=== PATIENT | female | born 1995 | race Caucasian/White ===

== ENCOUNTER 2018-06-14 09:02 | Emergency (ER) | payer OTHER, SELFPAY ==
[2018-06-14 10:03] VITALS: BP 130/82; PULSE 100; RESP 13; TEMP 36.9; O2SAT 98
--- NOTE | 2018-06-14 10:18 | ED.NAVMDI ---
HPI - Nausea/Vomiting/Diarrhea General Chief complaint: Nausea/Vomiting/Diarrhea Stated complaint: Diarrhea, dihydrated, vomiting Time Seen by Provider: 06/14/18 10:04 Source: patient Mode of arrival: ambulatory Limitations: no limitations History of Present Illness HPI Narrative: Otherwise healthy 22-year-old female here for evaluation of vomiting that occurred over 2 days 3 days ago. Now with continued diarrhea. She states she does not remember the last time that she urinated without having a bowel movement along with it. States she also is on her menstrual cycle. Has not been camping, drinking upon water, no recent antibiotics, no recent sick contacts. Has not tried any anti diarrheal medications except for Pepto-Bismol. Related Data Home Medications Medication Instructions Recorded Confirmed etonogestrel [Nexplanon] 1 ea SUBDERMAL .ONCE 06/14/18 06/14/18 Previous Rx's Medication Instructions Recorded loperamide [Imodium A-D] 2 mg PO Q2-4H PRN #10 cap 06/14/18 Allergies Allergy/AdvReac Type Severity Reaction Status Date / Time No Known Drug Allergies Allergy Verified 04/22/18 15:20 Review of Systems Constitutional Denies fever(s) Cardiovascular Denies chest pain and Denies dyspnea Respiratory Denies dyspnea Gastrointestinal Gastrointestinal: Denies abdominal pain, Reports cramping, Reports diarrhea, Denies nausea and Denies vomiting Genitourinary Denies dysuria and Reports vaginal discharge Integumentary/Breasts Denies rash Neurologic Denies behavioral changes Psychiatric Denies behavioral changes Hematologic/Lymphatic Denies easy bleeding and Denies easy bruising [facility] Surgical History History of excision of mass (Resolved 07/24/14) Family History (Updated 12/08/17 @ 11:25 by Marilyn Hedrick) Father No problems noted. Grandfather Cancer Grandmother No problems noted. Mother No problems noted. Grandfather No problems noted. Grandmother Alzheimer's disease Sister No problems noted. Brother No problems noted. Social History Smoking Status: Former smoker Tobacco: How many years used: 1 (social smoker only. I never bought a pack for myself. ) second hand exposure: No alcohol intake: current (beer or wine maybe twice a week. ) substance use type: does not use Family History (Updated 12/08/17 @ 11:25 by Marilyn Hedrick) Father No problems noted. Grandfather Cancer Grandmother No problems noted. Mother No problems noted. Grandfather No problems noted. Grandmother Alzheimer's disease Sister No problems noted. Brother No problems noted. Social History Smoking Status: Former smoker Tobacco: How many years used: 1 (social smoker only. I never bought a pack for myself. ) second hand exposure: No alcohol intake: current (beer or wine maybe twice a week. ) substance use type: does not use Exam Initial Vital Signs Initial Vital Signs: Vital Signs Temperature 98.4 F 06/14/18 10:03 Pulse Rate 100 H 06/14/18 10:03 Respiratory Rate 13 06/14/18 10:03 Blood Pressure 130/82 06/14/18 10:03 Pulse Oximetry 98 06/14/18 10:03 Const General: cooperative, comfortable, well developed, well groomed and No acute distress Orientation: alert and awake HENMT Head: normal to inspection and normocephalic Resp Effort & Inspection: normal respiratory effort Cardio Rate: tachycardic GI Inspection: non-distended Palpation: soft, No firm and No tender Skin Lesions: no lesions Rashes: no rashes Neuro General: alert, awake and oriented x3 Extrem General: normal to inspection and capillary refill normal Psych Appearance: grossly normal and well kempt Course Orders Ordered: ED Orders 06/14/18 10:35 GI Panel (Film Array) Stat Discontinued Medications Sodium Chloride (Normal Saline 0.9%) 1,000 mls @ 1,000 mls/hr IV BOLUS ONE Stop: 06/14/18 11:17 Last Infusion: 06/14/18 11:32 Dose: 0 mls/hr Admin: 06/14/18 10:23 Dose: 1,000 mls/hr Ibuprofen (Advil) 400 mg PO NOW ONE Stop: 06/14/18 11:32 Last Admin: 06/14/18 11:33 Dose: 400 mg Vital Signs - 8 hr 06/14/18 10:03 Temperature 98.4 F Pulse Rate 100 H Respiratory Rate 13 Blood Pressure 130/82 Pulse Oximetry 98 MDM - Nausea/Vomiting/Diarrhea Lab Data Attestation: I reviewed the patient's lab results. Lab Results 06/14/18 Range/Units 10:35 Stl C. cayetanensis PCR Not detected (Not Detect) Stool Rotavirus (PCR) Not detected (Not Detect) Stool Adenovirus (PCR) Not detected (Not Detect) Stool Astrovirus (PCR) Not detected (Not Detect) Stool Cryptosporidium PCR Not detected (Not Detect) Stl E.coli Shiga Tox PCR Not detected (Not Detect) St Sh/Enteroin Ecoli PCR Not detected (Not Detect) Stool E coli O157 PCR Not detected (Not Detect) Stl Enterotoxigenic E PCR Not detected (Not Detect) Stool EPEC (PCR) Not detected (Not Detect) Stl E. histolytica PCR Not detected (Not Detect) Stool Giardia Lamblia PCR Not detected (Not Detect) Stool Sapovirus (PCR) Not detected (Not Detect) Stl P. shigelloides PCR Not detected (Not Detect) St Y.enterocolitica PCR Not detected (Not Detect) Stool Vibrio (PCR) Not detected (Not Detect) Stl Vibrio cholerae PCR Not detected (Not Detect) Stl Enteroaggr Ecoli PCR Not detected (Not Detect) Stl Norovirus GI/GII PCR Detected H (Not Detect) Campylobacter (PCR) Not detected (Not Detect) C. difficile Tox (PCR) Not detected (Not Detect) Salmonella (PCR) Not detected (Not Detect) Point of Care Testing Test Results Negative Urine Dip Bedside Urine Glucose Negative Bedside Urine Bilirubin - Negative Bedside Urine Ketone - Negative Urine Specific Switchback 1.025 Bedside Urine Occult Blood + Bedside Urine pH 6.0 Bedside Urine Protein +/- 15 Bedside Urine Urobilinogen - Negative Bedside Urine Nitrite - Negative Bedside Urine Leukocytes - Negative Esterase MDM Narrative Medical decision making narrative: The patient is tolerating oral intake. Her stool cultures does show norovirus. I discussed this with the patient. No indication for further workup. Patient was given return precautions and follow-up instructions Discharge Plan Departure Patient Disposition: Home Clinical Impression: Norovirus Instructions: Diarrhea, DI for Norovirus Infection Activity Restrictions/Additional Instructions: Be sure to increase your fluid intake. Be sure you are washing her hands frequently. Contact her primary care doctor for a follow-up Prescriptions: New loperamide [Imodium A-D] 2 mg capsule 2 mg PO Q2-4H PRN (Reason: loose stool) Qty: 10 RF: 0 No Action Nexplanon 68 mg Implant 1 ea Subdermal .ONCE RF: 0 Referrals: Vicki Ramirez PA-C [Primary Care Provider] -
[2018-06-14] MEDS: SODIUM CHLORIDE 0.9% 1,000 ML 1000 ML IV (10:23)
[2018-06-14] MEDS: IBUPROFEN 400 MG TABLET PO (11:33)
[2018-06-14 12:08] LABS: Adenovirus F 40/41 Not Detected (Not Detect); Astrovirus Not Detected (Not Detect); Campylobacter Not Detected (Not Detect); Clostridium difficile toxin AB Not Detected (Not Detect); Cryptosporidium Not Detected (Not Detect); Cyclospora cayetanensis Not Detected (Not Detect); Entamoeba histolytica Not Detected (Not Detect); Enteroaggregative E.coli Not Detected (Not Detect); Enteropathogenic E.coli Not Detected (Not Detect); Enterotoxigenic E.coli It/st Not Detected (Not Detect); Giardia lamblia Not Detected (Not Detect); Norovirus GI/GII Detected (Not Detect); Plesiomonsa shigelloides Not Detected (Not Detect); Rotavirus A Not Detected (Not Detect); Salmonella Not Detected (Not Detect); Sapovirus Not Detected (Not Detect); Shiga-like toxin-prod E.coli Not Detected (Not Detect); Shigella/Enteroinvasive E.coli Not Detected (Not Detect); Vibrio Not Detected (Not Detect); Vibrio cholerae Not Detected (Not Detect); Yersinia enterocolitica Not Detected (Not Detect)
[2018-06-14 12:26] VITALS: BP 122/84; PULSE 90; RESP 16; O2SAT 100
== END 2018-06-14 12:30 | disposition home or self-care (01) ==
PROVIDERS: Emergency Provider Emergency Medicine; PCP Physician Assistant
DX: A08.11 Acute gastroenteropathy due to Norwalk agent (principal); E86.0 Dehydration; R11.10 Vomiting, unspecified
CPT/HCPCS: 81003; 81025; 87507; 99283

== ENCOUNTER → 2023-03-24 13:55 | Outpatient (CLI) | payer OTHER, SELFPAY ==
--- NOTE | 2023-03-24 13:56 | DI.US.S_ITS ---
PROCEDURE: US OB <= 14 WEEKS FETUS INDICATIONS: dating and viability OUTSIDE/PRIOR DATING DATA: Last menstrual period (LMP): 01/24/2023. LMP-based estimated date of delivery (GABRIEL): 10/31/2023. First dating scan (date and location): 03/24/2023. Estimated date of delivery (GABRIEL) from first dating scan: 10/31/2023. TECHNIQUE: Real-time scanning was performed of the fetus and maternal pelvic organs, with image documentation. Endovaginal scanning was also performed to better visualize the fetus and maternal ovaries. COMPARISON: None. FINDINGS: Embryo: [place]-rump length 1.9 cm corresponds with a 8 week 3 day gestation Heart rate: 169 beats per minute Maternal organs: Ovaries unremarkable. IMPRESSION: Single live intrauterine corresponds with a 8 week 3 day gestation Approved by: Bill Kahn M.D. on 03/24/2023 at 19:08
== END ==
LOC: US 13:56
PROVIDERS: PCP Family Medicine; Referring Provider Student in an Organized Health Care Education/Training Program; Visit Provider Student in an Organized Health Care Education/Training Program
DX: Z34.01 Encounter for supervision of normal first pregnancy, first trimester (principal); Z3A.08 8 weeks gestation of pregnancy
CPT/HCPCS: 76801

== ENCOUNTER → 2023-04-21 16:37 | Outpatient (CLI) | payer OTHER, SELFPAY ==
[2023-04-21 18:09] LABS: Add Manual Diff / Slide Review NO; Basophils Absolute Auto 100 /uL (0-100); Basophils Percent Auto 0.4 % (0-2); Eosinophils Absolute Auto 100 /uL (0-450); Eosinophils Percent Auto 0.7 % (2-4); Hemoglobin 12.8 g/dL (12.0-16.0); Lymphocytes Absolute Auto 3100 /uL (1100-4500); Lymphocytes Percent Auto 19.6 % (25-40); Mean Corpuscular HGB Conc 34.6 % (30-36); Mean Corpuscular Hemoglobin 30.2 PG (26-34); Mean Corpuscular Volume 87.4 fL (80-100); Monocytes Absolute Auto 1400 /uL (0-900); Monocytes Percent Auto 8.5 % (3-14); Neutrophils Absolute Auto 11400 /uL (1500-7000); Neutrophils Percent Auto 70.8 % (50-75); Platelet Count 243 X10^3/uL (150-400); Red Blood Cell Count 4.24 X10^6/uL (4.0-5.2); Red Cell Distribution Width 12.8 % (11.6-14.8)
[2023-04-21 18:10] LABS: Appearance Urine UA CLEAR; Bilirubin Urine UA NEGATIVE (NEGATIVE); Color Urine UA YELLOW; Glucose Urine UA NEGATIVE (Negative); Ketones Urine UA NEGATIVE (NEGATIVE); Leukocyte Esterase Urine UA NEGATIVE (NEGATIVE); Nitrite Urine UA NEGATIVE (Negative); Occult Blood Urine UA TRACE-INTACT (Negative); Protein Urine UA NEGATIVE (Negative); Specific Gravity Urine UA 1.025 (1.000-1.035); Urobilinogen Urine UA 0.2 E.U./dL (0.2); pH Urine UA 5.5 (4.5-8.0)
[2023-04-21 18:15] LABS: Creatinine Urine Random 91.5 mg/dL; Protein (Total) Urine Random 5 mg/dL (0-12); Protein Creatinine Ratio Urine 0.05 GRAM/24H
[2023-04-21 19:28] LABS: Urine N gonorrhoeae NOT DETECTED
[2023-04-21 19:29] LABS: Alanine Aminotransferase 36 IU/L (<35); Albumin Globulin Ratio 1.3 (1.0-2.8); Alkaline Phosphatase 64 U/L (38-126); Aspartate Aminotransferase 32 IU/L (14-36); BUN Creatinine Ratio 19.6 (6-22); Bilirubin Total 0.4 mg/dL (0.2-1.3); Blood Urea Nitrogen 10 mg/dL (7-17); Calcium 9.5 mg/dL (8.4-10.2); Carbon Dioxide 18 mmol/L (22-32); Chloride 106 mmol/L (98-107); Estimated Glomerular Filt Rate > 60 mL/min (>60); GTT (PREG) 1 Hour PP 50gm Dose 96 mg/dL (76-139); Globulin 3.2 g/dL (1.7-4.1); Glucose 96 mg/dL (70-100); HEMOLYSIS < 15 (0-50); Potassium 3.4 mmol/L (3.4-5.1); Sodium 134 mmol/L (137-145); Total Protein 7.2 g/dL (6.3-8.2)
[2023-04-21 19:38] LABS: Urine Chlamydia NOT DETECTED
[2023-04-23 12:09] LABS: Varicella IgG Antibody >4000 index (Immune >165)
[2023-04-23 19:03] LABS: Hepatitis B Surface Antigen NEGATIVE s/c (NEGATIVE)
[2023-04-23 19:58] LABS: HIV 1 & 2 Ab/Ag 4th Gen Combo NEGATIVE (NEGATIVE); Hep C Virus Ab w/Reflex Quant NEGATIVE s/c (NEGATIVE)
[2023-04-24 03:36] LABS: RPR Screen Non Reactive (Non Reactive)
== END ==
PROVIDERS: PCP Family Medicine; Referring Provider Family Medicine; Visit Provider Family Medicine
DX: Z34.01 Encounter for supervision of normal first pregnancy, first trimester (principal)
CPT/HCPCS: 80053; 80055; 81003; 82570; 82950; 84156; 86787; 86803; 86850; 86900; 86901; 87086; 87389; 87491; 87591

== ENCOUNTER → 2023-06-11 14:20 | Outpatient (CLI) | payer OTHER, SELFPAY ==
--- NOTE | 2023-06-11 14:21 | DI.US.S_ITS ---
PROCEDURE: US OB >= 14 WEEKS FETUS INDICATIONS: growth OUTSIDE/PRIOR DATING DATA: Last menstrual period (LMP): 01/24/2023. LMP-based estimated date of delivery (GABRIEL): 10/31/2023. First dating scan (date and location): 03/24/2023. Estimated date of delivery (GABRIEL) from first dating scan: 10/31/2023. The calculations are made using the clinical GABRIEL of 10/31/2023. TECHNIQUE: Real-time scanning was performed of the fetus, with image documentation and biometric measurements. Endovaginal scanning: No COMPARISON: None. FINDINGS: General: A single living intrauterine gestation is present. Presentation: Breech. Placenta: Placental position is posterior , without previa. Amniotic fluid index: 17.9 cm, normal range is 5-24 cm. Single deepest vertical pocket is 5.1 cm. heart rate: 153 beats per minute. Maternal cervical canal: 3.7 cm long. Normal lower limit is 2.5 cm. biometrics: Biparietal diameter: 4.8 cm, 20 week 3 day Head circumference: 17.7 cm, 20 week 1 day Abdominal circumference: 15.3 cm, 20 week 4 day Femur length: 3.0 cm, 19 week 2 day Clinically estimated gestational age: 19 week 5 day Composite gestational age from present scan: 20 week 1 day Estimated weight and percentile: 325 g, 62 percentile Anatomic survey: Neuro: Ventricles are non-dilated at less than 10 mm. Cisterna magna is normal at 3-11 mm. Cerebellum is normal in size and morphology. Nuchal skin fold: Not well seen Face: Nose and lips, facial profile are normal. Spine: No evidence for spina bifida. Heart: 4 chamber view nor outflow tracks are well observed Diaphragm: Diaphragm is intact. Stomach: Left-sided stomach is present. Kidneys: No hydronephrosis. Normal is less than 5 mm in 2nd trimester, less than 7 mm in 3rd trimester. Cord: 3-vessel cord has orthotopic insertion. Bladder: Normal in size. Extremities: All 4 extremities identified. IMPRESSION: neck and cardiac views are not well seen due to positioning. Attention on follow-up. Approved by: Bill Kahn M.D. on 06/11/2023 at 18:56
== END ==
PROVIDERS: PCP Family Medicine; Referring Provider Family Medicine; Visit Provider Family Medicine
DX: O32.1XX0 Maternal care for breech presentation, not applicable or unspecified; Z3A.20 20 weeks gestation of pregnancy
CPT/HCPCS: 76811

== ENCOUNTER → 2023-07-09 12:41 | Outpatient (CLI) | payer OTHER, SELFPAY ==
--- NOTE | 2023-07-09 12:42 | DI.US.S_ITS ---
PROCEDURE: US OB LIMITED INDICATIONS: repeat Anatomy US for heart and neck views OUTSIDE/PRIOR DATING DATA: Last menstrual period (LMP): 01/24/2023. LMP-based estimated date of delivery (GABRIEL): 10/31/2023. First dating scan (date and location): 03/24/2023. Estimated date of delivery (GABRIEL) from first dating scan: 10/31/2023. TECHNIQUE: Real-time scanning was performed of the fetus, with image documentation and biometric measurements. Endovaginal scanning: Not performed COMPARISON: [facility], US, US OB >= 14 WEEKS FETUS, 06/11/2023, 14:32. FINDINGS: General: A single living intrauterine gestation is present. Presentation: Vertex. Placenta: Placental position is posterior , without previa. Amniotic fluid index: 17.1 cm, normal range is 5-24 cm. Single deepest vertical pocket is 6.9 cm. heart rate: 160 beats per minute. Maternal cervical canal: 4.3 cm long. Normal lower limit is 2.5 cm. Clinically estimated gestational age: 23 weeks, 5 days Other: Four-chamber heart appears grossly within normal limits but is suboptimally seen. The ventricular outflow tracts are not well seen. The neck is within normal limits with nuchal fold measuring 5.2 millimeters.. IMPRESSION: 1. Single live intrauterine consistent with 23 weeks and 5 days. 2. Four chamber heart appears grossly within normal limits but is suboptimally seen. The ventricular outflow tracts are not well seen. Consider short-term follow-up. neck is within normal limits. We strive to produce accurate, complete, and clear reports of imaging services. To assist us in improving patient care, this report was composed using standard report templates and voice recognition software. Therefore, it may contain abnormal punctuation, insertions and/or omissions. Occasional wrong-word or sound-alike substitutions may occur. Though we review the report and make efforts to correct it, we do recommend that the report be read carefully in proper context to recognize any text inaccuracies. Dictated by: Adonis Stevenson M.D. on 07/09/2023 at 16:04 Approved by: Adonis Stevenson M.D. on 07/09/2023 at 16:09
== END ==
PROVIDERS: PCP Family Medicine; Referring Provider Family Medicine; Visit Provider Family Medicine
DX: Z34.02 Encounter for supervision of normal first pregnancy, second trimester (principal); Z3A.23 23 weeks gestation of pregnancy
CPT/HCPCS: 76815

== ENCOUNTER → 2023-07-21 07:01 | Outpatient (CLI) | payer OTHER, SELFPAY ==
--- NOTE | 2023-07-21 07:03 | DI.US.S_ITS ---
PROCEDURE: US OB FOLLOW UP INDICATIONS: CARDIAC OUTFLOW TRACTS OUTSIDE/PRIOR DATING DATA: Last menstrual period (LMP): 01/24/2023. LMP-based estimated date of delivery (GABRIEL): 10/31/2023. The calculations are made using the clinical GABRIEL of 10/31/2023. TECHNIQUE: Real-time scanning was performed of the fetus, with image documentation. Endovaginal scanning: Not performed COMPARISON: None. FINDINGS: A single living intrauterine gestation is present. Presentation: Oblique. Placenta: Placental position is posterior, without previa. Amniotic fluid index: 17.9 cm, normal range is 5-24 cm. Single deepest vertical pocket is 6.0 cm. heart rate: 150 beats per minute. Maternal cervical canal: 3.7 cm long. Normal lower limit is 2.5 cm. Clinically estimated gestational age: 25 weeks 3 days New cardiac outflow tracts appear within normal limits. IMPRESSION: Single living intrauterine at 25 weeks 3 days, GABRIEL of 10/31/2023. Cardiac outflow tracts appeared within normal limits. Dictated by: Jasbir Barriga M.D. on 07/21/2023 at 9:10 Approved by: Jasbir Barriga M.D. on 07/21/2023 at 9:11
[2023-07-21 10:16] LABS: Hematocrit 35.8 % (36-46); Hemoglobin 12.4 g/dL (12.0-16.0); Mean Corpuscular HGB Conc 34.5 % (30-36); Mean Corpuscular Hemoglobin 29.9 PG (26-34); Mean Corpuscular Volume 86.5 fL (80-100); Platelet Count 231 X10^3/uL (150-400); Red Blood Cell Count 4.14 X10^6/uL (4.0-5.2); Red Cell Distribution Width 12.6 % (11.6-14.8); White Blood Cell Count 14.6 X10^3/uL (4.5-11.0)
[2023-07-21 10:35] LABS: GTT (PREG) 1 Hour PP 50gm Dose 122 mg/dL (76-139)
== END ==
PROVIDERS: PCP Family Medicine; Referring Provider Family Medicine; Visit Provider Family Medicine
DX: Z34.02 Encounter for supervision of normal first pregnancy, second trimester (principal); Z3A.25 25 weeks gestation of pregnancy
CPT/HCPCS: 36415; 76816; 82950; 85027

== ENCOUNTER → 2023-08-25 07:18 | Outpatient (CLI) | payer OTHER, SELFPAY ==
--- NOTE | 2023-08-25 07:19 | DI.US.S_ITS ---
PROCEDURE: US OB LIMITED INDICATIONS: EFW OUTSIDE/PRIOR DATING DATA: Last menstrual period (LMP): 01/24/2023. LMP-based estimated date of delivery (GABRIEL): 10/31/2023. First dating scan (date and location): 03/24/2023. Estimated date of delivery (GABRIEL) from first dating scan: 10/31/2023. The calculations are made using the GABRIEL of 10/31/2023. TECHNIQUE: Real-time scanning was performed of the fetus, with image documentation and biometric measurements. Endovaginal scanning: Not performed COMPARISON: [facility], OB FOLLOW UP, 07/21/2023, 7:26. [facility], OB LIMITED, 07/09/2023, 13:17. FINDINGS: General: A single living intrauterine gestation is present. Presentation: Vertex. Placenta: Placental position is posterior , without previa. Amniotic fluid index: 23.4 cm, normal range is 5-24 cm. Single deepest vertical pocket is 7.6 cm. heart rate: 135 beats per minute. Maternal cervical canal: 4.1 cm long. Normal lower limit is 2.5 cm. biometrics: Biparietal diameter: 7.9 centimeters, 31 weeks 4 days Head circumference: 28.9 centimeters, 31 weeks 3 days Abdominal circumference: 27.9 centimeters, 32 weeks 0 days Femur length: 5.8 centimeters, 30 weeks 3 days Clinically estimated gestational age: 30 weeks 3 days Composite gestational age from present scan: 31 weeks 3 days Estimated weight and percentile: 1766 grams, 73 percent Other: Not applicable. IMPRESSION: 1. Single live intrauterine consistent with 31 weeks and 3 days. 2. Estimated weight is in the 73rd percentile. 3. Amniotic fluid index is at the upper limits of normal, 23.4 centimeters. We strive to produce accurate, complete, and clear reports of imaging services. To assist us in improving patient care, this report was composed using standard report templates and voice recognition software. Therefore, it may contain abnormal punctuation, insertions and/or omissions. Occasional wrong-word or sound-alike substitutions may occur. Though we review the report and make efforts to correct it, we do recommend that the report be read carefully in proper context to recognize any text inaccuracies. Dictated by: Adonis Stevenson M.D. on 08/25/2023 at 10:45 Approved by: Adonis Stevenson M.D. on 08/25/2023 at 10:50
== END ==
PROVIDERS: PCP Family Medicine; Referring Provider Family Medicine; Visit Provider Family Medicine
DX: Z34.03 Encounter for supervision of normal first pregnancy, third trimester (principal); Z3A.31 31 weeks gestation of pregnancy
CPT/HCPCS: 76815

== ENCOUNTER → 2023-10-02 14:36 | Outpatient (CLI) | payer OTHER, SELFPAY ==
[2023-10-03 14:44] LABS: Strep Grp B PCR NEG for Grp B Strep
== END ==
PROVIDERS: PCP Family Medicine; Visit Provider Family Medicine
DX: Z34.00 Encounter for supervision of normal first pregnancy, unspecified trimester (principal)
CPT/HCPCS: 87653

== ENCOUNTER 2023-11-08 19:19 | Inpatient (IN) | payer OTHER, SELFPAY ==
[2023-11-08] MEDS: miSOPROStoL 25 MCG TABLET PO (20:40)
[2023-11-08 22:15] LABS: Add Manual Diff / Slide Review NO; Basophils Absolute Auto 100 /uL (0-100); Basophils Percent Auto 0.4 % (0-2); Eosinophils Absolute Auto 100 /uL (0-450); Eosinophils Percent Auto 0.7 % (2-4); Hematocrit 42.2 % (36-46); Hemoglobin 14.1 g/dL (12.0-16.0); Lymphocytes Absolute Auto 3900 /uL (1100-4500); Lymphocytes Percent Auto 22.7 % (25-40); Mean Corpuscular HGB Conc 33.5 % (30-36); Mean Corpuscular Hemoglobin 28.3 PG (26-34); Mean Corpuscular Volume 84.6 fL (80-100); Monocytes Absolute Auto 1000 /uL (0-900); Monocytes Percent Auto 5.6 % (3-14); Neutrophils Absolute Auto 12200 /uL (1500-7000); Neutrophils Percent Auto 70.6 % (50-75); Platelet Count 299 X10^3/uL (150-400); Red Blood Cell Count 4.99 X10^6/uL (4.0-5.2); Red Cell Distribution Width 14.3 % (11.6-14.8); White Blood Cell Count 17.4 X10^3/uL (4.5-11.0)
[2023-11-09] MEDS: miSOPROStoL 25 MCG TABLET 50 MCG PO ×2 (00:40→04:45)
--- NOTE | 2023-11-09 08:13 | PM.OBHP.1 ---
OB HPI Date/Time Date of admission: 11/08/23 Date Patient Seen: 11/09/23 Time Patient Seen: 07:45 History of Present Condition Chief complaint: Induction : 1 Para: 0 Estimated Date of Delivery: 10/31/23 Estimated Gestational Age (weeks): 41w2d Narrative: Mable Crystal is a 28 year old G1 presenting at 41w1 day (last night) by LMP c/w dating US at 8w3d for mIOL for post-dates . has been uncomplicated other than measuring large for dates but US reassuring wtih EFW 1766g (73rd%ile) at 31w3d She was not feeling contractions on arrival but this morning is getting more uncomfortable after 3 doses of cytotec overnight. FHT reassuring. Indications Indication for induction OB: post dates History of Present care: good care Dating criteria: LMP confirmed by 1st trimester US (LMp c/w dating US at 8w3d) Ultrasounds: normal 1st trimester US and normal mid trimester US Obstetrical complications: none Medical complications: none Preadmission Labs Blood type: O (+) positive -: Antibody screen: negative, GBS status: negative, HBsAG: negative, HIV: negative and RPR/VDLR: negative -: Chlamydia screen: not detected and Gonorrhea screen: not detected -: Rubella: immune and Varicella: immune HCT: 42.2 HCAB: negative Cell-free DNA: low risk female 1 hr GTT: 122 Evaluation Evaluation Baseline heart rate: 140 Variability: Moderate (11-25) monitor accelerations: Present Monitor Decelerations: Absent Contraction Frequency (minutes): 3 Uterine Contraction Intensity: Mild Category of Tracing: Reactive Status: Category l Dilation (cm): 1 Effacement (%): 50 Dilation: 1-2 cm Effacement: 40-50% station: -3 Position of cervix: mid Consistency: soft Fitzpatrick score: 5 PFSH Medical History (Updated 05/19/23 @ 19:47 by Corinne Hinds) Eczema (~2000) Chicken pox (~2000) Migraine with aura (~2009) Skin irritation Surgical History (Updated 05/19/23 @ 19:47 by Corinne Hinds) Anesthesia [place] teeth extracted History of tonsillectomy and adenoidectomy (~2010) History of excision of mass (07/24/14) Family History (Updated 05/19/23 @ 19:49 by Corinne Hinds) Father Obesity Mental health problem Grandfather Cancer Heart disease Heart attack Hypertension Grandmother Obesity Breast cancer Mental health problem Hypertension Mother Eczema Grandfather Heart attack Heart disease Hypertension Grandmother Alzheimer's disease Breast cancer Brother Migraine with aura Mental health problem Brother Mental health problem Social History marital status: unmarried,living together number of children: 0 household members: significant other lives independently: Yes caregiver/support person: No housing: other (5th wheel trailer home) pets and animals: Yes (dog) education level: high school 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[employer]) current occupational exposures/hazards: No special leah needs: No travel history: over 6 months ago seatbelt use: always helmet use: Yes water heater temp set < 120 deg: Yes working smoke detector in home: Yes fire extinguisher in home: Yes carbon monox detector in home: Yes firearms in home: Yes firearms unloaded and locked: Yes do you feel safe at home: Yes Smoking Status: Never smoker Tobacco: How many years used: 4 (smoked, then vaped) second hand exposure: No alcohol intake: former (~3 glasses wine/week when not ) substance use type: does not use during the past year weight has: decreased > 10 lbs (~15 lb through diet and exercise) well-balanced diet: daily or most days daily servings fruits/ve or more times/day caffeine: No Type(s) of exercise: walking, resistance training and other (boxing) Meds Home Medications and Allergies Home Medications Medication Instructions Recorded Confirmed Type vitamin-ferrous sulfate tab PO 03/04/23 11/04/23 History 27 mg iron-folic acid 0.8 mg tablet famotidine 20 mg tablet (Heartburn 20 mg PO DAILY 11/08/23 11/08/23 History Relief (famotidine)) Allergies Allergy/AdvReac Type Severity Reaction Status Date / Time No Known Drug Allergies Allergy Verified 11/04/23 14:06 Review of Systems Review of Systems Narrative: starting to feel contractions this AM doing well No vaginal bleeding OB Exam Vital signs Blood Pressure: 119/70 Pulse Rate: 96 Temperature: 36.4 F Narrative Exam Narrative: GEN: well appearing, NAD pulm: breathing comfortably on RA CV: warm and well perfused ABd: gravid, non-tender SVE: 2/50/-3/soft, during exam wtih dawkins placement, stretches to a 3cm Objective Labs 11/08/23 21:55 Labs: Laboratory Results - last 24 hr 11/08/23 21:55 WBC 17.4 H RBC 4.99 Hgb 14.1 Hct 42.2 MCV 84.6 MCH 28.3 MCHC 33.5 RDW 14.3 Plt Count 299 Neut % (Auto) 70.6 Lymph % (Auto) 22.7 L Weber % (Auto) 5.6 Eos % (Auto) 0.7 L Baso % (Auto) 0.4 Neut # (Auto) 68312 H Lymph # (Auto) 3900 Weber # (Auto) 1000 H Eos # (Auto) 100 Baso # (Auto) 100 Blood Type O Positive Antibody Screen Negative Assessment and Plan Assessment and Plan Assessment and Plan narrative: 28 yo G1 presenting at 41w1d for mIOL due to post-dates . Overnight she was started on Cytotec. Dawkins balloon placed at 7:55am, tolerated well. SVE 2/60/-3 upon placement, when placing dawkins cervix stretches to 3cm. has been uncomplicated other than measuring large for dates but US reassuring [facility] EFW 1766g (73rd%ile) at 31w3d #mIOL for postdates : - s/p Cytotec 25, 50, 50mcg, last given this AM - Start Pitocin after she eats breakfast and showers - continuous monitoring - FHT cat 1 currently - GBS negative - Baby is low risk female, baby girl Alba - Partner Tucker at bedside - Cephalic on bedside US in clinic prior to arrival - EFW 1766g at 31w3d Time-Based Coding :: [TOTAL MINUTES] spent with patient and on the chart (including review of chart, obtaining history, exam, reviewing outside data, placing orders, documenting exam and treatment plan, and counseling patient) on [DATE].
[2023-11-09] MEDS: LACTATED RINGERS 1,000 ML 100 ML IV ×2 (08:40→15:21)
--- NOTE | 2023-11-09 09:17 | PM.OBPNLAB ---
Date/Time Date Patient Seen: 11/09/23 Time Patient Seen: 09:17 Pain Control Pain control: tolerating well Comments: Feeling contractions now, more uncomfortable but still tolerating well Pelvic Exam Dilation (cm): 5 Effacement (%): 80 station: -2 Amniotic membrane status: Intact Comments: AROM, clear fluid at 9:06. FHT following reassuring wtih baseline 135, +accels, - decels, moderate variability contractions not tracing well on TOCO Contractions Contractions on admission: irregular Monitor mode: External Contraction frequency (min): 3 Contraction duration (min): 1 Contraction pattern: Irregular Contraction intensity: Mild Status status: Category l Heart Rate Baseline: 140 Monitor Accelerations: Present Monitor Decelerations: Absent Monitor Variability: Moderate Assessment and Plan Assessment: induction ongoing Plan: begin patient augmentation Comments: 28 yo G1 presenting at 41w1d for mIOL due to post-dates . Overnight she was started on Cytotec and this AM dawkins balloon was placed. Balloon has now fallen out and pt is noting more discomfort. AROM, clear fluid at 9:06. Will start Pitocin for augmentation now that cervix is favorable. #mIOL for postdates : - s/p Cytotec 25, 50, 50mcg, last given this AM - s/p Dawkins baloon placement at 7:50am, fell out approximately 30 min later - s/p AROM at 9:06am - Start pitocin, 2mu/min, increase as tolerated - continuous monitoring - FHT cat 1 currently - GBS negative - Baby is low risk female, baby girl Alba - Partner Tucker at bedside - Cephalic on bedside US in clinic prior to arrival
[2023-11-09] MEDS: OXYTOCIN PREMIX 30 UNIT/500 ML PLAST..BAG IV (09:38)
[2023-11-09 11:06] VITALS: BP 119/70; PULSE 96; TEMP 2.4; TEMP 36.4
--- NOTE | 2023-11-09 11:21 | PM.AN.REGBLK ---
Regional Block Pre-procedure PMH/ROS narrative: labor ASA Class: II Labs: Hct 42.2 % (36-46) 11/08/23 21:55 Plt Count 299 X10^3/uL (150-400) 11/08/23 21:55 Medications: Current Medications Generic Name Dose Route Start Last Admin Trade Name Freq PRN Reason Stop Dose Admin Calcium Carbonate 1,000 mg 11/08/23 20:04 Calcium Carbonate 500 Mg Tab PO Q2HR PRN Dyspepsia Carboprost Tromethamine 250 mcg 11/08/23 20:04 Carboprost 250 Mcg/Ml Ampul IM Q90M PRN Bleeding Diphenhydramine HCl 25 mg 11/09/23 11:19 Diphenhydramine 50 Mg/Ml Vial IV Q10M PRN Pruritis Ephedrine Sulfate 10 mg 11/09/23 11:19 Ephedrine 50 Mg/Ml Vial IV Q5M PRN Blood pressure decrease more than 20% of baseline. Fentanyl 50 mcg 11/08/23 20:04 Fentanyl 100 Mcg/2 Ml Inj IV Q1H PRN Pain, Moderate (4-6) Hydromorphone HCl 0 mg 11/09/23 11:19 Hydromorphone 1 Mg Inj IV Q5MIN PRN Pain, Mild (1-3) Hydromorphone HCl 0 mg 11/09/23 11:19 Hydromorphone 1 Mg Inj IV Q5MIN PRN Pain, Moderate (4-6) Oxytocin/Lactated Ringer's 30 unit in 500 mls @ 200 mls/hr 11/08/23 20:04 Oxytocin Premix IV CONT PRN Bleeding Protocol Tranexamic Acid 1,000 mg/ 100 mls @ 600 mls/hr 11/08/23 20:04 Sodium Chloride IV NOW PRN Bleeding Oxytocin/Lactated Ringer's 30 unit in 500 mls @ 2 mls/hr 11/09/23 09:30 11/09/23 09:38 Oxytocin Premix IV 2 milliunit/min TITRATE MITZY 2 mls/hr Administration Protocol 2 MILLIUNIT/MIN Lidocaine HCl 20 ml 11/08/23 20:04 Lidocaine 1% 20 Ml INJ INTRA-OP PRN Post Delivery Methylergonovine Maleate 0.2 mg 11/08/23 20:04 Methylergonovine 0.2 Mg Tablet PO Q6HR PRN Heavy Bleeding Methylergonovine Maleate 0.2 mg 11/08/23 20:04 Methylergonovine 0.2 Mg/Ml Vial IM NOW PRN Bleeding Mineral Oil 30 ml 11/08/23 20:04 Mineral Oil 30 Ml Udc TOP PRN PRN Version Misoprostol 25 mcg 11/08/23 20:02 11/08/23 20:40 Misoprostol 25 Mcg Tablet PO 25 mcg QID MITZY Administration Misoprostol 800 mcg 11/08/23 20:04 Misoprostol 200 Mcg Tablet IL NOW PRN Bleeding Misoprostol 400 mcg 11/08/23 20:04 Misoprostol 200 Mcg Tablet SL NOW PRN Bleeding Misoprostol 50 mcg 11/09/23 00:30 11/09/23 04:45 Misoprostol 25 Mcg Tablet PO 50 mcg QID MITZY Administration Nalbuphine HCl 2.5 mg 11/09/23 11:19 Nalbuphine 20 Mg/Ml Ampul IV Q10M PRN Pruritis Naloxone HCl 0.2 mg 11/08/23 20:04 Naloxone 0.4 Mg/Ml Vial IV Q2MIN PRN Opiate Reversal Ondansetron HCl 4 mg 11/08/23 20:04 Ondansetron 4 Mg/2 Ml Inj IV Q4HR PRN Nausea And Vomiting Oxytocin 10 unit 11/08/23 20:04 Oxytocin 10 Unit/Ml Vial IM NOW PRN Bleeding Allergies: Allergies Allergy/AdvReac Type Severity Reaction Status Date / Time No Known Drug Allergies Allergy Verified 11/04/23 14:06 Procedure Insertion date: 11/09/23 Insertion time: 11:02 Prep/Local: betadine x3 and 1% lidocaine Interspace: l3 l4 Patient position: sitting Needle: 17 gauge Tuohy Loss of resistance with: saline SHAYE at (cm): 6 Catheter placed at SKIN (cm): 15 Insertion: No CSF, No Blood, No Paresthesia with insertion, No Paresthesia with injection and No Test dose reaction Initial Medications TEST DOSE time: 11:04 TEST DOSE: 1.5% lidocaine with epinephrine 1:200k (mL): 2 BOLUS DOSE time: 11:04 BOLUS DOSE (mL): 4 BOLUS DOSE med: 0.125% bupivacaine with fentanyl 10 mcg/mL Infusion INFUSION: 0.0625% bupivacaine and with fentanyl 2 mcg/mL Initial rate (mL/hr): 8 Subsequent interventions: n/a Post-procedure Anesthesia date START: 11/09/23 Anesthesia time START: 10:46
[2023-11-09] MEDS: ONDANSETRON 4 MG/2 ML INJ IV (16:05)
--- NOTE | 2023-11-09 19:55 | PM.OBPNLAB ---
Date/Time Date Patient Seen: 11/09/23 Time Patient Seen: 19:55 Pain Control Pain control: epidural Pelvic Exam Dilation (cm): 10 Effacement (%): 100 station: +1 Amniotic membrane status: Ruptured Contractions Contractions on admission: irregular Monitor mode: External Contraction frequency (min): 3 Contraction pattern: Regular Contraction intensity: Mild Status status: Category ll Heart Rate Baseline: 150 Monitor Accelerations: Present Monitor Decelerations: Variable Monitor Variability: Moderate Assessment and Plan Assessment: active labor Comments: 28 yo G1 presenting at 41w1d for mIOL due to post-dates . Overnight she was started on Cytotec and this AM dawkins balloon was placed. Balloon has now fallen out and pt is noting more discomfort. AROM, clear fluid at 9:06. Pitocin augmentation ongoing. Pt now complete and pushing wtih good progress. #mIOL for postdates , 41w2d today: - s/p Cytotec 25, 50, 50mcg, last given this AM - s/p Dawkins baloon placement at 7:50am, fell out approximately 30 min later - s/p AROM at 9:06am - continue pitocin - continuous monitoring - FHT cat II fo rvariables - GBS negative - Baby is low risk female, baby girl Alba - Partner Tucker at bedside - Cephalic on bedside US in clinic prior to arrival
--- NOTE | 2023-11-09 21:25 | PM.OBPRVD ---
Labor & Delivery Delivery date: 11/09/23 Intrapartal Events: None Cervical ripening method: per misoprostal protocol Delivery augmentation: rupture of membranes and pitocin Delivery monitor: external FHT Route of delivery: L&D Laceration Description: Perineal - 2nd Degree, Vaginal - 2nd Degree and Labial Delivery repair: vicryl Estimated blood loss (mL): 350 Anesthesia Type: Epidural Narrative: 28 yo at 41w1d presented for mIOL for post-dates and was admitted to Labor and Delivery. GNS was negative so no ppx was needed. She was started on oral cytotec for cervical ripening. After 25, 50, 50mcg overnight, a dawkins balloon was placed, which soon fell out. AROM occured at 09:06am with clear fluid, then she was started on Pitocin. Pain was controlled with epidural. The patient progressed through the 2nd stage hours and delivered a viable female infant out of direct OA position with APGARs 9/9 at 20:08 via uncomplicated . The cord was cut and clamped after a 60 second delay. The placenta delivered with gentle cord traction, and appeared complete. The perineum and vagina were inspected with a deep sulcal vaginal laceration with left labial extension and 2nd degree perineal laceration. This was repaired with 3-0 Vicryl in the usual fashion. Needle and sponge counts were correct.? The vagina was inspected and no items were left in situ. PREPROCEDURE DIAGNOSIS: Intrauterine at 41w2d GBS negative RH positive POSTPROCEDURE DIAGNOSIS: Intrauterine at 41w2d, delivered Same as preprocedure Plan for aftercare: Routine care
[2023-11-10] MEDS: IBUPROFEN 600 MG TABLET PO ×2 (02:13→08:00)
[2023-11-10] MEDS: ACETAMINOPHEN 325 MG TABLET 650 MG PO ×2 (04:42→12:09)
--- NOTE | 2023-11-10 09:50 | PM.OBDS.1 ---
Discharge Providers Provider Date of admission: 11/08/23 19:19 Discharge Date: 11/10/23 Primary care physician: Malorie Martin MD Consults: 11/08/23 20:04 Consult to Anesthesiology Urgent Comment: Consulting Provider: Loli Naidu Reason for consultation: Epidural 11/10/23 21:33 Consult to Professor Of Mechanical Engineering Routine Comment: Discharge provider: Milka Aguilar MD Summary Hospital Course Date Patient Seen: 11/10/23 Time Patient Seen: 07:50 Diagnoses: S/p Hospital Course: 28 yo at 41w1d presented for mIOL for post-dates and was admitted to Labor and Delivery. GNS was negative so no ppx was needed. She was started on oral cytotec for cervical ripening. After 25, 50, 50mcg overnight, a dawkins balloon was placed, which soon fell out. AROM occured at 09:06am with clear fluid, then she was started on Pitocin. Pain was controlled with epidural. The patient progressed through the 2nd stage hours and delivered a viable female infant out of direct OA position with APGARs 9/9 at 20:08 via uncomplicated . The cord was cut and clamped after a 60 second delay. The placenta delivered with gentle cord traction, and appeared complete. The perineum and vagina were inspected with a deep sulcal vaginal laceration with left labial extension and 2nd degree perineal laceration. This was repaired with 3-0 Vicryl in the usual fashion. PP course was uncomplicated. Pain was well controlled with oral medication. Bleeding was well controlled. She was discharged at 24 hours following delivery Time Spent with Patient Time attestation: Total time spent providing and/or coordinating discharge services: Objective Labs 11/08/23 21:55 Exam Vital Signs (past 8 hours): BP:119/70 P: 96 Temp: 36.4 RR: 12 Narrative Exam Narrative: GEN: well appearing, NAD CV: warm and well perfused Pulm: breathing comfortably on RA ABd: non-tender, fundus firm Discharge Plan Discharge Plan Patient Disposition: Home Discharge orders & Medications Prescriptions: Continued vit-ferrous sulfat-FA 27 mg iron- 0.8 mg tablet PO famotidine [Heartburn Relief (famotidine)] 20 mg tablet 20 mg PO DAILY Follow up/Referrals: Malorie Martin MD [Primary Care Provider] - Milka Aguilar MD [Physician] - 3-5 Days (Please follow up with Dr. Aguilar on , at the scheduled time she sent you. ) Visit Report/Discharge Packet Stand Alone Forms: Discharge: Care, Patient Portal/API, Stroke Signs & Symptoms Discharge Data Primary Care Provider: Malorie Martin
[2023-11-10 14:43] VITALS: BP 119/70; PULSE 96; RESP 15; TEMP 2.4; TEMP 36.4
== END 2023-11-10 16:50 | disposition home or self-care (01) | DRG 807 ==
PROVIDERS: Admitting Provider Family Medicine; PCP Family Medicine; Referring Provider Family Medicine; Visit Provider Family Medicine
DX: O48.0 Post-term pregnancy (principal); Z37.0 Single live birth; Z3A.41 41 weeks gestation of pregnancy; O70.1 Second degree perineal laceration during delivery
CPT/HCPCS: 59050; 59200; 85025; 86850; 86900; 86901; G0379; J2405; J2590